=== PATIENT | female | born 1935 | race Caucasian/White ===

== ENCOUNTER 2018-06-13 07:30 | Inpatient (IN) | payer MEDICARE, BC ==
[2018-06-13] MEDS: Acetaminophen 500 MG Tab PO SCH ×2 (14:06→21:57)
[2018-06-13] MEDS ORDERED: Warfarin Sliding Scale PO SCH (14:15)
[2018-06-13] MEDS: oxyCODONE 5 MG Tab PO PRN ×2 (17:33→21:55)
--- NOTE | 2018-06-13 20:55 | PCM.HP ---
H&P History of Present Illness - General Date of Service: 06/13/18 Admit Problem/Dx: Admission Diagnosis/Problem Admission Diagnosis/Problem Hip fracture requiring operative repair Source of Information: Patient History Limitations: Reports: No Limitations - History of Present Illness Initial Comments - Free Text/Narative: 82 yo female with a recent fracture of the hip,with an intramedullary nail placed. She is being admitted to Swing Bed for rehab.has CAD,CHF,Afib,HTN,MDD all well controlled.She is a [employer]. Left Hip Pain Score (Numeric/FACES): 8 - Related Data Allergies/Adverse Reactions: Allergies Allergy/AdvReac Type Severity Reaction Status Date / Time sulfamethoxazole Allergy Other Verified 11/22/17 14:50 [From Bactrim] trimethoprim [From Bactrim] Allergy Other Verified 11/22/17 14:50 Home Medications: Home Meds Aspirin [Halfprin] 81 mg PO DAILY 11/22/17 [History] Calcium Carb/D3/Magnesium/Zinc [[place]-Afs-Ukts-Vit D] 3 tab PO DAILY 11/22/17 [History] Cholecalciferol (Vitamin D3) [Vitamin D3] 1,000 units PO DAILY 11/22/17 [History ] Desipramine HCl 100 mg PO BEDTIME 11/22/17 [History] Dextroamphetamine Sulfate [Dexedrine] 10 mg PO 08,12 11/22/17 [History] Metoprolol Succinate [Toprol Xl] 50 mg PO DAILY 11/22/17 [History] Multivitamin [Multivitamins] 1 cap PO DAILY 11/22/17 [History] Polyethylene Glycol 3350 [MiraLAX] 17 gm PO DAILY 11/22/17 [History] Sennosides/Docusate Sodium [Senna-S] 1 tab PO BID 11/22/17 [History] Warfarin [Coumadin] 4 mg PO DAILY 11/22/17 [History] Acetaminophen [Tylenol Extra Strength] 1,000 mg PO Q8H 06/13/18 [History] Enoxaparin [Lovenox] 40 mg SUBCUT DAILY 06/13/18 [History] Levothyroxine [Synthroid] 100 mcg PO 0600 06/13/18 [History] Zolpidem Tartrate [Ambien] 5 mg PO BEDTIME 06/13/18 [History] hydrOXYzine pamoate [Hydroxyzine Pamoate] 25 mg PO Q4H PRN 06/13/18 [History] oxyCODONE 2.5 mg PO Q4H PRN 06/13/18 [History] oxyCODONE 5 mg PO Q4H PRN 06/13/18 [History] Past Medical History HEENT History: Reports: Hard of Hearing, Impaired Vision, Other (See Below) Other HEENT History: cataracts removed this year, glasses only used when driving Cardiovascular History: Reports: Bypass, Hypertension, SOB on Exertion, Stents, Other (See Below) Other Cardiovascular History: TRIPLE BYPASS Respiratory History: Reports: Bronchitis, Recurrent, Pneumonia, Recurrent, SOB Gastrointestinal History: Reports: Chronic Constipation, GERD Genitourinary History: Reports: UTI, Recurrent SHELLACKER History: Reports: Other OB/BYN History: had heavy bleeding so had hysterectomy Musculoskeletal History: Reports: Arthritis, Fracture, Other (See Below) Other Musculoskeletal History: GENERAL ARTHRITIS Neurological History: Reports: CVA Other Neuro History: CVA in 2014. Psychiatric History: Reports: Depression Endocrine/Metabolic History: Reports: Hypothyroidism Hematologic History: Reports: Other (See Below) Other Hematologic History: HISORY OF BLOOD CLOTS TO LEGS\LUNGS\ ARMS AFTER OPEN HEART SURGERY - Infectious Disease History Infectious Disease History: Reports: Chicken Pox, Measles, Mumps - Past Surgical History HEENT Surgical History: Reports: Cataract Surgery, Oral Surgery Other HEENT Surgeries/Procedures: RAMU.CATARACTS Cardiovascular Surgical History: Reports: None, Coronary Artery Stent, Other ( See Below) Other Cardiovascular Surgeries/Procedures: 3 BYPASS Respiratory Surgical History: Reports: None GI Surgical History: Reports: Colonoscopy Female Surgical History: Reports: Hysterectomy Endocrine Surgical History: Reports: None Neurological Surgical History: Reports: None Musculoskeletal Surgical History: Reports: Hip Replacement, Knee Replacement, Other (See Below) Other Musculoskeletal Surgeries/Procedures:: LEFT KNEE AND RIGHT HIP LEFT LOWER LEG SURGURY WITH FOOT DROP AFTERWARDS. HAD A RECENT LEFT HIP REPLACEMENT Dermatological Surgical History: Reports: None Social & Family History - Family History Family Medical History: Noncontributory Cardiac: Reports: [place] Other Cardiac Family History: 2 brothers of heart attack, sister had heart attack too - Tobacco Use Smoking Status *Q: Former Smoker Years of Tobacco use: 10 Used Tobacco, but Quit: No Second Hand Smoke Exposure: No - Caffeine Use Caffeine Use: Reports: Coffee Caffeine Use Comment: can drink a couple of cups a day - Recreational Drug Use Recreational Drug Use: No H&P Review of Systems - Review of Systems: Review Of Systems: ROS reveals no pertinent complaints other than HPI. Exam - Exam Exam: See Below - Vital Signs Vital Signs: Last Vital Signs Temp 98.5 F 06/13/18 13:20 Pulse 78 06/13/18 13:20 Resp 18 06/13/18 13:20 BP 127/51 L 06/13/18 13:20 Pulse Ox 95 06/13/18 13:20 Weight: 74.843 kg - Exam General: Alert, Oriented, 4 HEENT: PERRLA, Hearing Intact, Mucosa Moist & [place], Nares Patent, Normal Nasal Septum, Posterior Pharynx Clear, Conjunctiva Clear, EOMI, EACs Clear, TMs Clear Neck: Supple, Trachea Midline, 2 Lungs: Clear to Auscultation, Normal Respiratory Effort Cardiovascular: Regular Rate, Regular Rhythm GI/Abdominal Exam: Normal Bowel Sounds, Soft, Non-Tender, No Organomegaly, No Distention, No Abnormal Bruit, No Mass, Pelvis Stable (Female) Exam: Deferred Rectal (Female) Exam: Normal Exam, Normal Rectal Tone Back Exam: Normal Inspection, Full Range of Motion, NT Extremities: Normal Inspection, Normal Range of Motion, Non-Tender, No Pedal Edema, Normal Capillary Refill Skin: Warm, Dry, Intact Neurological: Cranial Nerves Intact, Reflexes Equal Bilateral Neuro Extensive - Mental Status: Alert, Oriented x3, Normal Mood/Affect, Normal Cognition Neuro Extensive - Motor, Sensory, Reflexes: CN II-XII Intact, Normal Gait, Normal Reflexes Psychiatric: Alert, Normal Affect, Normal Mood - Problem List (1) Status post hip surgery SNOMED Code(s): 917657189 ICD Code: Z98.890 - OTHER SPECIFIED POSTPROCEDURAL STATES Status: Acute Current Visit: Yes (2) HTN (hypertension) SNOMED Code(s): 06866162 ICD Code: I10 - ESSENTIAL (PRIMARY) HYPERTENSION Status: Chronic Current Visit: Yes Qualifiers: Hypertension type: essential hypertension Qualified Code(s): I10 - Essential (primary) hypertension (3) CAD (coronary artery disease) SNOMED Code(s): 14794285 ICD Code: I25.10 - ATHSCL HEART DISEASE OF [place] CORONARY ARTERY W/O ANG PCTRS Status: Chronic Current Visit: Yes Qualifiers: Coronary Disease-Associated Artery/Lesion type: bypass graft (4) Afib SNOMED Code(s): 92601910 ICD Code: I48.91 - UNSPECIFIED ATRIAL FIBRILLATION Status: Chronic Current Visit: Yes Qualifiers: Atrial fibrillation type: chronic Qualified Code(s): I48.2 - Chronic atrial fibrillation (5) MDD (major depressive disorder) SNOMED Code(s): 478964937 ICD Code: F32.9 - MAJOR DEPRESSIVE DISORDER, SINGLE EPISODE, UNSPECIFIED Status: Chronic Current Visit: Yes Qualifiers: Major depression recurrence: recurrent Active/Remission status: currently active (6) Hypothyroid SNOMED Code(s): 75557725 ICD Code: E03.9 - HYPOTHYROIDISM, UNSPECIFIED Status: Chronic Current Visit: Yes Qualifiers: Hypothyroidism type: unspecified Qualified Code(s): E03.9 - Hypothyroidism , unspecified (7) Osteoporosis SNOMED Code(s): 13486018 ICD Code: M81.0 - AGE-RELATED OSTEOPOROSIS W/O CURRENT PATHOLOGICAL FRACTURE Status: Chronic Current Visit: Yes Qualifiers: Osteoporosis type: age-related (8) Long-term (current) use of anticoagulants, INR goal 2.0-3.0 SNOMED Code(s): 115570362, 203477309 ICD Code: Z79.01 - PRISON (CURRENT) USE OF ANTICOAGULANTS Status: Acute Current Visit: Yes Problem List Initiated/Reviewed/Updated: Yes Orders Last 24hrs: Active Orders 24 hr Category Date Time Status Patient Status [ADT] Routine ADT 06/13/18 13:20 Active Communication Order [RC] ASDIRECTED Care 06/13/18 13:59 Active Height and Weight [RC] .qMon@0600 Care 06/13/18 13:20 Active Oxygen Therapy [RC] PRN Care 06/13/18 13:20 Active Up With Assistance [RC] ASDIRECTED Care 06/13/18 13:20 Active VTE/DVT Education [RC] Per Unit Routine Care 06/13/18 13:20 Active Vital Signs [RC] PER UNIT ROUTINE Care 06/13/18 13:20 Active OT Evaluation and Treatment [CONS] Routine Cons 06/13/18 13:20 Active PT Evaluation and Treatment [CONS] Routine Cons 06/13/18 13:20 Active Regular Diet [DIET] Diet 06/13/18 Breakfast Active INR,PT,PROTHROMBIN TIME [COAG] Routine Lab 06/14/18 06:00 Ordered INR,PT,PROTHROMBIN TIME [COAG] Routine Lab 06/17/18 05:10 Ordered Acetaminophen [Tylenol Extra Strength] Med 06/13/18 14:00 Active 1,000 mg PO Q8H Aspirin [Halfprin] Med 06/14/18 09:00 Active 81 mg PO DAILY Calcium Carbonate/Vitamin D3 [Calcium Carbonate/Vitamin Med 06/14/18 09:00 Active D 1250 MG-200 Unit] 2 tab PO DAILY Cholecalciferol (Vitamin D3) [Vitamin D3] Med 06/14/18 09:00 Active 1,000 units PO DAILY Desipramine Med 06/13/18 21:00 Active 100 mg PO BEDTIME Docusate Sodium/Sennosides [Senna Plus] Med 06/13/18 21:00 Active 1 tab PO BID Enoxaparin [Lovenox] Med 06/14/18 09:00 Active 40 mg SUBCUT DAILY Levothyroxine [Synthroid] Med 06/14/18 06:00 Active 100 mcg PO 0600 Metoprolol Succinate [Toprol XL] Med 06/14/18 09:00 Active 50 mg PO DAILY Multivitamins w-Iron/Ca/FA/Min [Thera M Plus] Med 06/14/18 09:00 Active 1 tab PO DAILY Polyethylene Glycol 3350 [MiraLAX] Med 06/14/18 09:00 Active 17 gm PO DAILY Warfarin Sliding Scale [Coumadin Sliding Scale] Med 06/13/18 14:15 Pending 1 each PO ASDIRECTED Warfarin [Coumadin] Med 06/14/18 16:00 Active 4 mg PO 1600 Zolpidem [Ambien] Med 06/13/18 21:00 Active 5 mg PO BEDTIME hydrOXYzine HCl [Atarax] Med 06/13/18 13:37 Active 25 mg PO Q4H PRN oxyCODONE Med 06/13/18 13:21 Active 2.5 mg PO Q4H PRN oxyCODONE Med 06/13/18 13:21 Active 5 mg PO Q4H PRN Resuscitation Status Routine Resus Stat 06/13/18 13:20 Ordered Medication Orders Acetaminophen (Tylenol Extra Strength) 1,000 mg PO Q8H FRANKI Last Admin: 06/13/18 14:06 Dose: 1,000 mg Aspirin (Halfprin) 81 mg PO DAILY [facility] Calcium Carbonate (Calcium Carbonate/Vitamin D 1250 Mg-200 Unit) 2 tab PO DAILY [facility] Cholecalciferol (Vitamin D3) 1,000 units PO DAILY [facility] Desipramine HCl (Desipramine) 100 mg PO BEDTIME [facility] Enoxaparin Sodium (Lovenox) 40 mg SUBCUT DAILY [facility] Hydroxyzine HCl (Atarax) 25 mg PO Q4H PRN PRN Reason: ADJUNCT PAIN WITH OXYCODONE Levothyroxine Sodium (Synthroid) 100 mcg PO 0600 [facility] Metoprolol Succinate (Toprol Xl) 50 mg PO DAILY [facility] Multivitamins/Minerals (Thera M Plus) 1 tab PO DAILY [facility] Oxycodone HCl (Oxycodone) 2.5 mg PO Q4H PRN PRN Reason: MODERATE PAIN Last Admin: 06/13/18 17:33 Dose: 2.5 mg Oxycodone HCl (Oxycodone) 5 mg PO Q4H PRN PRN Reason: SEVERE PAIN Polyethylene Glycol (Miralax) 17 gm PO DAILY [facility] Senna/Docusate Sodium (Senna Plus) 1 tab PO BID [facility] Warfarin Sodium (Coumadin) 4 mg PO 1600 [facility] Warfarin Sodium (Coumadin Sliding Scale) 1 each PO ASDIRECTED [facility] Zolpidem Tartrate (Ambien) 5 mg PO BEDTIME [facility] Assessment/Plan Comment:: Admit to Swing Bed. Continue PT/OT and home meds
[2018-06-13] MEDS: Zolpidem 5 MG Tab PO SCH (21:55)
[2018-06-14] MEDS: hydrOXYzine HCl 25 MG Tab PO PRN ×2 (00:33→22:17)
[2018-06-14] MEDS: oxyCODONE 5 MG Tab PO PRN ×5 (00:34→20:33)
[2018-06-14] MEDS: Levothyroxine 100 MCG Tab PO SCH (06:23)
[2018-06-14] MEDS: Acetaminophen 500 MG Tab PO SCH ×3 (06:23→22:17)
[2018-06-14] MEDS: Calcium Carbonate/Vitamin D3 1250 MG-200 Unit Tab PO SCH (08:57)
[2018-06-14] MEDS: Enoxaparin 40 MG/0.4 ML Syringe SUBCUT SCH (08:57)
[2018-06-14] MEDS: Aspirin 81 MG Tab.EC PO SCH (08:57)
[2018-06-14] MEDS: Polyethylene Glycol 3350 Powder 17 GM Packet PO SCH (08:58)
[2018-06-14] MEDS: Multivitamins with Iron/Calcium/Folic Acid/Minerals Tab PO SCH (08:58)
[2018-06-14] MEDS: Cholecalciferol (Vitamin D3) 1,000 Unit Tab PO SCH (08:59)
[2018-06-14] MEDS ORDERED: Multivitamin Tab PO SCH (09:00)
[2018-06-14] MEDS: Metoprolol Succinate 50 MG Tab.ER PO SCH (09:04)
[2018-06-14] MEDS: Warfarin 4 MG Tab PO SCH (15:45)
[2018-06-14] MEDS: Zolpidem 5 MG Tab PO SCH (20:33)
[2018-06-15] MEDS: Levothyroxine 100 MCG Tab PO SCH (05:48)
[2018-06-15] MEDS: oxyCODONE 5 MG Tab PO PRN ×5 (05:48→20:23)
[2018-06-15] MEDS: Acetaminophen 500 MG Tab PO SCH ×3 (06:23→21:58)
[2018-06-15] MEDS: Calcium Carbonate/Vitamin D3 1250 MG-200 Unit Tab PO SCH (08:01)
[2018-06-15] MEDS: Cholecalciferol (Vitamin D3) 1,000 Unit Tab PO SCH (08:01)
[2018-06-15] MEDS: Aspirin 81 MG Tab.EC PO SCH (08:01)
[2018-06-15] MEDS: Polyethylene Glycol 3350 Powder 17 GM Packet PO SCH (08:02)
[2018-06-15] MEDS: Enoxaparin 40 MG/0.4 ML Syringe SUBCUT SCH (08:02)
[2018-06-15] MEDS: Metoprolol Succinate 50 MG Tab.ER PO SCH (08:03)
[2018-06-15] MEDS: Multivitamins with Iron/Calcium/Folic Acid/Minerals Tab PO SCH (08:03)
[2018-06-15] MEDS: Warfarin 4 MG Tab PO SCH (16:01)
[2018-06-15] MEDS: Zolpidem 5 MG Tab PO SCH (20:23)
[2018-06-15] MEDS: hydrOXYzine HCl 25 MG Tab PO PRN (21:58)
[2018-06-16] MEDS: Levothyroxine 100 MCG Tab PO SCH (05:55)
[2018-06-16] MEDS: Acetaminophen 500 MG Tab PO SCH (05:55)
[2018-06-16] MEDS: oxyCODONE 5 MG Tab PO PRN (07:26)
[2018-06-16] MEDS: Calcium Carbonate/Vitamin D3 1250 MG-200 Unit Tab PO SCH (09:40)
[2018-06-16] MEDS: Enoxaparin 40 MG/0.4 ML Syringe SUBCUT SCH (09:40)
[2018-06-16] MEDS: Polyethylene Glycol 3350 Powder 17 GM Packet PO SCH (09:40)
[2018-06-16] MEDS: Aspirin 81 MG Tab.EC PO SCH (09:41)
[2018-06-16] MEDS: Multivitamins with Iron/Calcium/Folic Acid/Minerals Tab PO SCH (09:42)
[2018-06-16] MEDS: Metoprolol Succinate 50 MG Tab.ER PO SCH (09:42)
[2018-06-16] MEDS: Cholecalciferol (Vitamin D3) 1,000 Unit Tab PO SCH (09:43)
--- NOTE | 2018-06-16 11:06 | PCM.PN ---
- General Info Date of Service: 06/16/18 Admission Dx/Problem (Free Text): Patient states she still having quite a bit of pain in the left hip. It's better than was a week ago but still significant. The pain pills help somewhat. There when necessary at this time. She has no fevers or chills or drainage from her wound. - Patient Data Vitals - Most Recent: Last Vital Signs Temp 97.2 F 06/16/18 06:10 Pulse 85 06/16/18 09:42 Resp 16 06/16/18 06:10 BP 175/84 H 06/16/18 09:42 Pulse Ox 96 06/16/18 06:10 Weight - Most Recent: 165 lb Med Orders - Current: Current Medications Acetaminophen (Tylenol Extra Strength) 1,000 mg PO Q8H [facility] Last Admin: 06/16/18 05:55 Dose: 1,000 mg Aspirin (Halfprin) 81 mg PO DAILY [facility] Last Admin: 06/16/18 09:41 Dose: 81 mg Calcium Carbonate (Calcium Carbonate/Vitamin D 1250 Mg-200 Unit) 2 tab PO DAILY [facility] Last Admin: 06/16/18 09:40 Dose: 2 tab Cholecalciferol (Vitamin D3) 1,000 units PO DAILY [facility] Last Admin: 06/16/18 09:43 Dose: 1,000 units Desipramine HCl (Desipramine) 100 mg PO BEDTIME [facility] Last Admin: 06/15/18 20:24 Dose: 100 mg Enoxaparin Sodium (Lovenox) 40 mg SUBCUT DAILY [facility] Last Admin: 06/16/18 09:40 Dose: 40 mg Hydroxyzine HCl (Atarax) 25 mg PO Q4H PRN PRN Reason: ADJUNCT PAIN WITH OXYCODONE Last Admin: 06/15/18 21:58 Dose: 25 mg Levothyroxine Sodium (Synthroid) 100 mcg PO 0600 [facility] Last Admin: 06/16/18 05:55 Dose: 100 mcg Metoprolol Succinate (Toprol Xl) 50 mg PO DAILY [facility] Last Admin: 06/16/18 09:42 Dose: 50 mg Multivitamins/Minerals (Thera M Plus) 1 tab PO DAILY [facility] Last Admin: 06/16/18 09:42 Dose: 1 tab Oxycodone/Acetaminophen (Percocet 325-5 Mg) 1 tab PO Q6H [facility] Polyethylene Glycol (Miralax) 17 gm PO DAILY [facility] Last Admin: 06/16/18 09:40 Dose: 17 gm Senna/Docusate Sodium (Senna Plus) 1 tab PO BID [facility] Last Admin: 06/16/18 09:41 Dose: 1 tab Warfarin Sodium (Coumadin) 4 mg PO 1600 [facility] Last Admin: 06/15/18 16:01 Dose: 4 mg Warfarin Sodium (Coumadin Sliding Scale) 1 each PO ASDIRECTED [facility] Zolpidem Tartrate (Ambien) 5 mg PO BEDTIME [facility] Last Admin: 06/15/18 20:23 Dose: 5 mg Discontinued Medications Oxycodone HCl (Oxycodone) 2.5 mg PO Q4H PRN PRN Reason: MODERATE PAIN Last Admin: 06/15/18 11:47 Dose: 2.5 mg Oxycodone HCl (Oxycodone) 5 mg PO Q4H PRN PRN Reason: SEVERE PAIN Last Admin: 06/16/18 07:26 Dose: 5 mg - Exam Lungs: Normal Respiratory Effort Skin: Other (She is sitting in a chair swing to see the upper part of her wound but not the lower part. But it's normal without erythema or drainage) - Problem List & Annotations (1) S/P total hip arthroplasty SNOMED Code(s): 395987866675, 116492397095 Code(s): Z96.649 - PRESENCE OF UNSPECIFIED ARTIFICIAL HIP JOINT Status: Acute Current Visit: No - Problem List Review Problem List Initiated/Reviewed/Updated: Yes - My Orders Last 24 Hours: My Active Orders 06/16/18 11:15 Acetaminophen/oxyCODONE [Percocet 325-5 MG] 1 tab PO Q6H - Plan Plan:: Oxycodone when necessary. Start Percocet 5 x 3 25 mg 1 every 6 hours scheduled.
[2018-06-16] MEDS: Acetaminophen/oxyCODONE 325-5 MG Tab PO SCH ×2 (11:52→17:28)
[2018-06-16] MEDS: Warfarin 4 MG Tab PO SCH (16:28)
[2018-06-16] MEDS: Zolpidem 5 MG Tab PO SCH (20:48)
[2018-06-17] MEDS: Acetaminophen/oxyCODONE 325-5 MG Tab PO SCH ×5 (00:24→20:44)
[2018-06-17] MEDS: hydrOXYzine HCl 25 MG Tab PO PRN ×3 (00:24→15:31)
[2018-06-17] MEDS: Levothyroxine 100 MCG Tab PO SCH (05:27)
[2018-06-17] MEDS: Calcium Carbonate/Vitamin D3 1250 MG-200 Unit Tab PO SCH (08:58)
[2018-06-17] MEDS: Polyethylene Glycol 3350 Powder 17 GM Packet PO SCH (08:59)
[2018-06-17] MEDS: Metoprolol Succinate 50 MG Tab.ER PO SCH (08:59)
[2018-06-17] MEDS: Aspirin 81 MG Tab.EC PO SCH (08:59)
[2018-06-17] MEDS: Multivitamins with Iron/Calcium/Folic Acid/Minerals Tab PO SCH (08:59)
[2018-06-17] MEDS: Enoxaparin 40 MG/0.4 ML Syringe SUBCUT SCH (08:59)
[2018-06-17] MEDS: Cholecalciferol (Vitamin D3) 1,000 Unit Tab PO SCH (09:01)
[2018-06-17] MEDS ORDERED: Warfarin 3 MG Tab PO ONE (16:00)
[2018-06-17] MEDS: Zolpidem 5 MG Tab PO SCH (22:42)
[2018-06-18] MEDS: hydrOXYzine HCl 25 MG Tab PO PRN (00:43)
[2018-06-18] MEDS: Acetaminophen/oxyCODONE 325-5 MG Tab PO SCH ×6 (00:43→20:07)
[2018-06-18] MEDS: Levothyroxine 100 MCG Tab PO SCH (05:59)
[2018-06-18] MEDS: Calcium Carbonate/Vitamin D3 1250 MG-200 Unit Tab PO SCH (09:33)
[2018-06-18] MEDS: Polyethylene Glycol 3350 Powder 17 GM Packet PO SCH (09:33)
[2018-06-18] MEDS: Aspirin 81 MG Tab.EC PO SCH (09:33)
[2018-06-18] MEDS: Enoxaparin 40 MG/0.4 ML Syringe SUBCUT SCH (09:33)
[2018-06-18] MEDS: Metoprolol Succinate 50 MG Tab.ER PO SCH (09:34)
[2018-06-18] MEDS: Cholecalciferol (Vitamin D3) 1,000 Unit Tab PO SCH (09:34)
[2018-06-18] MEDS: Multivitamins with Iron/Calcium/Folic Acid/Minerals Tab PO SCH (09:34)
[2018-06-18] MEDS ORDERED: Warfarin 3 MG Tab PO ONE (16:00)
[2018-06-18] MEDS: Zolpidem 5 MG Tab PO SCH (20:08)
[2018-06-19] MEDS: Acetaminophen/oxyCODONE 325-5 MG Tab PO SCH ×7 (00:15→23:50)
[2018-06-19] MEDS: Levothyroxine 100 MCG Tab PO SCH (05:13)
[2018-06-19] MEDS: Calcium Carbonate/Vitamin D3 1250 MG-200 Unit Tab PO SCH (09:07)
[2018-06-19] MEDS: Polyethylene Glycol 3350 Powder 17 GM Packet PO SCH (09:08)
[2018-06-19] MEDS: Aspirin 81 MG Tab.EC PO SCH (09:08)
[2018-06-19] MEDS: Enoxaparin 40 MG/0.4 ML Syringe SUBCUT SCH (09:08)
[2018-06-19] MEDS: Multivitamins with Iron/Calcium/Folic Acid/Minerals Tab PO SCH (09:08)
[2018-06-19] MEDS: Metoprolol Succinate 50 MG Tab.ER PO SCH (09:09)
[2018-06-19] MEDS: Cholecalciferol (Vitamin D3) 1,000 Unit Tab PO SCH (09:09)
[2018-06-19] MEDS: Warfarin 4 MG Tab PO SCH (15:27)
[2018-06-19] MEDS: Zolpidem 5 MG Tab PO SCH (20:33)
[2018-06-20] MEDS: Acetaminophen/oxyCODONE 325-5 MG Tab PO SCH ×5 (04:54→20:30)
[2018-06-20] MEDS: Levothyroxine 100 MCG Tab PO SCH (04:59)
[2018-06-20] MEDS: Polyethylene Glycol 3350 Powder 17 GM Packet PO SCH (09:28)
[2018-06-20] MEDS: Enoxaparin 40 MG/0.4 ML Syringe SUBCUT SCH (09:28)
[2018-06-20] MEDS: Aspirin 81 MG Tab.EC PO SCH (09:29)
[2018-06-20] MEDS: Calcium Carbonate 500 MG Tablet PO SCH (09:29)
[2018-06-20] MEDS: Multivitamins with Iron/Calcium/Folic Acid/Minerals Tab PO SCH (09:29)
[2018-06-20] MEDS: Metoprolol Succinate 50 MG Tab.ER PO SCH (09:30)
[2018-06-20] MEDS: Cholecalciferol (Vitamin D3) 1,000 Unit Tab PO SCH (09:30)
[2018-06-20] MEDS: Warfarin 4 MG Tab PO SCH (16:07)
[2018-06-20] MEDS: Zolpidem 5 MG Tab PO SCH (20:32)
[2018-06-21] MEDS: Acetaminophen/oxyCODONE 325-5 MG Tab PO SCH ×3 (00:18→08:15)
[2018-06-21] MEDS: hydrOXYzine HCl 25 MG Tab PO PRN ×2 (00:19→20:34)
[2018-06-21] MEDS: Levothyroxine 100 MCG Tab PO SCH (06:07)
[2018-06-21] MEDS: Aspirin 81 MG Tab.EC PO SCH (08:52)
[2018-06-21] MEDS: Calcium Carbonate 500 MG Tablet PO SCH (08:52)
[2018-06-21] MEDS: Polyethylene Glycol 3350 Powder 17 GM Packet PO SCH (08:53)
[2018-06-21] MEDS: Metoprolol Succinate 50 MG Tab.ER PO SCH (08:54)
[2018-06-21] MEDS: Multivitamins with Iron/Calcium/Folic Acid/Minerals Tab PO SCH (08:54)
[2018-06-21] MEDS: Cholecalciferol (Vitamin D3) 1,000 Unit Tab PO SCH (08:55)
[2018-06-21] MEDS: Enoxaparin 40 MG/0.4 ML Syringe SUBCUT SCH (08:55)
[2018-06-21] MEDS: fentaNYL 12 MCG/HR Transdermal Patch TRDERM SCH (09:26)
[2018-06-21] MEDS: Acetaminophen/oxyCODONE 325-5 MG Tab PO PRN ×3 (12:35→20:33)
[2018-06-21] MEDS: Warfarin 3 MG Tab PO SCH (16:22)
[2018-06-21] MEDS: Zolpidem 5 MG Tab PO SCH (20:33)
[2018-06-21] MEDS: Gabapentin 100 MG Cap PO SCH (20:34)
[2018-06-22] MEDS: Levothyroxine 100 MCG Tab PO SCH (06:15)
[2018-06-22] MEDS: hydrOXYzine HCl 25 MG Tab PO PRN ×2 (06:20→20:04)
[2018-06-22] MEDS: Acetaminophen/oxyCODONE 325-5 MG Tab PO PRN ×4 (06:21→20:04)
[2018-06-22] MEDS: Calcium Carbonate 500 MG Tablet PO SCH (08:20)
[2018-06-22] MEDS: Aspirin 81 MG Tab.EC PO SCH (08:20)
[2018-06-22] MEDS: Cholecalciferol (Vitamin D3) 1,000 Unit Tab PO SCH (08:21)
[2018-06-22] MEDS: Multivitamins with Iron/Calcium/Folic Acid/Minerals Tab PO SCH (08:21)
[2018-06-22] MEDS: Polyethylene Glycol 3350 Powder 17 GM Packet PO SCH (08:21)
[2018-06-22] MEDS: Enoxaparin 40 MG/0.4 ML Syringe SUBCUT SCH (08:21)
[2018-06-22] MEDS: Metoprolol Succinate 50 MG Tab.ER PO SCH (08:22)
[2018-06-22] MEDS: Ferrous Sulfate 325 MG Tab PO SCH ×2 (12:26→17:54)
[2018-06-22] MEDS: Warfarin 3 MG Tab PO SCH (15:57)
[2018-06-22] MEDS: Zolpidem 5 MG Tab PO SCH (20:04)
[2018-06-22] MEDS: Gabapentin 100 MG Cap PO SCH (20:04)
[2018-06-23] MEDS: Levothyroxine 100 MCG Tab PO SCH (06:06)
[2018-06-23] MEDS: Acetaminophen/oxyCODONE 325-5 MG Tab PO PRN ×3 (07:41→19:48)
[2018-06-23] MEDS: Ferrous Sulfate 325 MG Tab PO SCH ×2 (07:45→17:34)
[2018-06-23] MEDS: hydrOXYzine HCl 25 MG Tab PO PRN ×2 (07:45→19:48)
[2018-06-23] MEDS: Calcium Carbonate 500 MG Tablet PO SCH (10:05)
[2018-06-23] MEDS: Polyethylene Glycol 3350 Powder 17 GM Packet PO SCH (10:05)
[2018-06-23] MEDS: Multivitamins with Iron/Calcium/Folic Acid/Minerals Tab PO SCH (10:06)
[2018-06-23] MEDS: Cholecalciferol (Vitamin D3) 1,000 Unit Tab PO SCH (10:06)
[2018-06-23] MEDS: Metoprolol Succinate 50 MG Tab.ER PO SCH (10:06)
[2018-06-23] MEDS ORDERED: Warfarin 4 MG Tab PO ONE (16:00)
[2018-06-23] MEDS: Zolpidem 5 MG Tab PO SCH (20:11)
[2018-06-23] MEDS: Gabapentin 100 MG Cap PO SCH (20:11)
[2018-06-24] MEDS: Acetaminophen/oxyCODONE 325-5 MG Tab PO PRN ×5 (00:06→22:06)
[2018-06-24] MEDS: hydrOXYzine HCl 25 MG Tab PO PRN ×2 (00:06→06:22)
[2018-06-24] MEDS: Levothyroxine 100 MCG Tab PO SCH (06:23)
[2018-06-24] MEDS: Polyethylene Glycol 3350 Powder 17 GM Packet PO SCH (08:02)
[2018-06-24] MEDS: Calcium Carbonate 500 MG Tablet PO SCH (08:02)
[2018-06-24] MEDS: Multivitamins with Iron/Calcium/Folic Acid/Minerals Tab PO SCH (08:03)
[2018-06-24] MEDS: Cholecalciferol (Vitamin D3) 1,000 Unit Tab PO SCH (08:03)
[2018-06-24] MEDS: Metoprolol Succinate 50 MG Tab.ER PO SCH (08:03)
[2018-06-24] MEDS: Ferrous Sulfate 325 MG Tab PO SCH ×2 (08:14→18:12)
[2018-06-24] MEDS: fentaNYL 12 MCG/HR Transdermal Patch TRDERM SCH (08:16)
--- NOTE | 2018-06-24 11:25 | PN ---
DATE SEEN: 06/21/2018 HISTORY: Lashell is an 82-year-old woman from [place], [place], with a history of hip fracture and ORIF with left intramedullary nail on approximately June 10, 2018. She was discharged from [place] to [facility] for swing bed. She had previously had a right hip fracture with hemiprosthesis and had been recuperating satisfactorily from that when she fell this last time. Since surgery, she has had a significant amount of pain. She says this one hurts quite a bit worse than the previous right-sided fracture and surgery. She is not getting good pain relief with current medications, and she says, particularly after her therapy, last evening, she states, she was in almost unbearable pain on the left. She is normally a very physically active person, but she does describe herself as being clumsy because of a lack of Achilles tendon on one side which may have contributed to her last fall. PHYSICAL EXAMINATION: GENERAL: The patient is examined in her chair during breakfast. VITAL SIGNS: Blood pressure 138/73, pulse 64, respirations normal, O2 saturation 96% on room air, and temperature 98.1. SKIN: Warm and dry. She has a bandage over the left hip incision. This was removed, revealing 3 interrupted rows of joey that are clean and healing. HEENT: Shows her mouth to be dry. LUNGS: Clear to the left base. She has rales at the right lower one-third, they are quite coarse. HEART: Regular without murmur, rub, or gallop. No atrial fibrillation is noted today on exam. ABDOMEN: Normal bowel sounds. Soft and nontender. EXTREMITIES: Show 1+ edema at both ankles, but left slightly greater than right. Right hip is comfortable, mild internal and external rotation. Left hip is markedly painful on flexion at the hip joint and any internal and external rotation. ASSESSMENT: 1. Postop left hip fracture ORIF, now by approximately 2 weeks, significant pain yet that is not controlled on current medications. 2. History of atrial fibrillation, on chronic warfarin anticoagulation. 3. Osteoporotic fracture of right hip, with hemiprosthesis, healing satisfactorily. 4. Achilles dysfunction by history. 5. History of chronic peripheral neuropathy and complaint of distressing cold feet preventing sleep at night. 6. Hypothyroidism. 7. Chronic essential hypertension. PLAN: Warfarin is being adjusted to become therapeutic, and then we will stop the Lovenox. I will add a Duragesic patch for better pain control and gabapentin starting with low-dose 100 mg at bedtime because of her concomitant narcotic use. Anticipate another couple of weeks of rehab on the hip. Anticipate discharge to home following recuperation. /[id number] [id number] SHELLY/ISAAC
--- NOTE | 2018-06-24 11:28 | PN ---
DATE SEEN: 06/23/2018 HISTORY: Lashell is an 82-year-old woman from [place] with a history of atrial fibrillation, history of cerebrovascular accident, coronary artery disease, hypertension, hypothyroidism, and depression. She fell at home and sustained a left proximal femur fracture. She underwent open reduction and internal fixation by Dr. Lala at [facility] in [place] on 06/09/2018. Postop hemoglobin was 8.5 g. She was given vitamin K preop and her warfarin has been resumed postop now. She has had moderate pain with ambulation. She was started on a Duragesic patch 2 days ago and has noted improvement in her ability to tolerate therapy, her general comfort in the hip. She is walking in the halls with therapy and making slow but steady progress. Of note is her hemoglobin dropped slightly further from 9 g last week to 8.4 g yesterday with an MCV of 73. Iron levels have been drawn and she is started on oral iron. Her INR last was 1.72. She is due for INR again tomorrow. Lashell states that she slept better last night and thinks that her feet have felt warmer since starting on gabapentin at bedtime. PHYSICAL EXAMINATION: GENERAL: She is examined in her bed. She is alert and oriented. She is a good historian. VITAL SIGNS: Blood pressure 135/71, pulse 68 and regular, respirations normal, O2 saturation 94% on room air, temperature 98.2. Last weight done on 06/16 was 165 pounds. SKIN: Anicteric, warm, dry. She has 3 separate short incisions overlying her left hip that are healing nicely with joey in place. No erythema, drainage, etc. LUNGS: Clear on the left. She has rales at lower 1/3rd on the right. HEART: Regular without murmur or gallop heard. ABDOMEN: Soft and nontender. EXTREMITIES: Show no significant edema at the ankles and comfortable internal and external rotation to a few degrees left hip. ASSESSMENT: 1. Healing making progress now 14 days post open reduction and internal fixation of left hip. 2. Chronic atrial fibrillation, on warfarin. 3. History of coronary artery disease and myocardial infarction. 4. History of stroke. 5. Hypertension. 6. Hypothyroidism. 7. Symptomatic peripheral neuropathy feet; improved, on bedtime gabapentin. 8. Depression. /[id number] RO/MODL PLAN: We will continue therapy. She is due for orthopedic clinic recheck in four days for staple removal. She is not sure she wants to make the trip up to [place] for this and we may just remove her joey here if she continues to make good therapy and progress and she would plan on her orthopedic followup later in July. We will continue the current analgesia and continue to provide palliative care measures for her generalized osteoarthritis, weakness, depression, etc. /[id number] RO/MODL
[2018-06-24] MEDS ORDERED: Warfarin 3 MG Tab PO ONE (16:00)
[2018-06-24] MEDS ORDERED: Warfarin 4 MG Tab PO ONE (16:00)
[2018-06-24] MEDS: Gabapentin 100 MG Cap PO SCH (22:01)
[2018-06-24] MEDS: Zolpidem 5 MG Tab PO SCH (22:01)
[2018-06-25] MEDS: Acetaminophen/oxyCODONE 325-5 MG Tab PO PRN ×4 (07:00→21:13)
[2018-06-25] MEDS: Levothyroxine 100 MCG Tab PO SCH (07:00)
[2018-06-25] MEDS: Multivitamins with Iron/Calcium/Folic Acid/Minerals Tab PO SCH (08:07)
[2018-06-25] MEDS: Ferrous Sulfate 325 MG Tab PO SCH ×2 (08:07→17:32)
[2018-06-25] MEDS: Cholecalciferol (Vitamin D3) 1,000 Unit Tab PO SCH (08:07)
[2018-06-25] MEDS: Calcium Carbonate 500 MG Tablet PO SCH (08:08)
[2018-06-25] MEDS: Metoprolol Succinate 50 MG Tab.ER PO SCH (08:08)
[2018-06-25] MEDS: Polyethylene Glycol 3350 Powder 17 GM Packet PO SCH (08:08)
[2018-06-25] MEDS ORDERED: Warfarin 3 MG Tab PO ONE (16:00)
[2018-06-25] MEDS: Gabapentin 100 MG Cap PO SCH (21:12)
[2018-06-25] MEDS: Zolpidem 5 MG Tab PO SCH (21:13)
[2018-06-26] MEDS: Levothyroxine 100 MCG Tab PO SCH (05:58)
[2018-06-26] MEDS: Acetaminophen/oxyCODONE 325-5 MG Tab PO PRN (05:59)
[2018-06-26] MEDS: Polyethylene Glycol 3350 Powder 17 GM Packet PO SCH (08:23)
[2018-06-26] MEDS: Ferrous Sulfate 325 MG Tab PO SCH ×2 (08:23→17:43)
[2018-06-26] MEDS: Furosemide 40 MG Tab PO SCH (08:23)
[2018-06-26] MEDS: Calcium Carbonate 500 MG Tablet PO SCH (08:23)
[2018-06-26] MEDS: Multivitamins with Iron/Calcium/Folic Acid/Minerals Tab PO SCH (08:24)
[2018-06-26] MEDS: Cholecalciferol (Vitamin D3) 1,000 Unit Tab PO SCH (08:24)
[2018-06-26] MEDS: Metoprolol Succinate 50 MG Tab.ER PO SCH (08:26)
--- NOTE | 2018-06-26 10:47 | PN ---
DATE SEEN: 06/26/2018 HISTORY OF PRESENT ILLNESS: Ms. Ennis is an 82-year-old woman with a history of atrial fibrillation, CVA, coronary artery disease, hypertension, hypothyroidism, depression. She sustained a left femur fracture and underwent ORIF on 06/09/2018. She has been in [facility] swing bed for rehab since 06/13/2018. She is improving from an orthopedic standpoint. She is walking out in the hallway several feet in each direction with her walker. She does get some left hip and knee pain at the end of that, but is not significantly dyspneic and gets no chest pain. Of note is her weight has increased from 165 pounds on admission to 180 pounds, 14 ounces yesterday. PHYSICAL EXAMINATION: VITAL SIGNS: Blood pressure 158/68, pulse 64 and irregular in atrial fib, O2 saturation 96% on room air, temp 98.3. SKIN: Shows no rash. There are healing incisions with joey overlying the left hip though joey will be removed tomorrow, which she has had no drainage, erythema, inflammation, etc. MOUTH: Dry. LUNGS: Have slight rales at the bases. HEART: Irregular in atrial fib, rate controlled. ABDOMEN: Soft and nontender. EXTREMITIES: Show 1+ edema at the malleoli bilaterally. LABORATORY DATA: Hemoglobin 8.3, INR 2.22. Last creatinine 0.7. ASSESSMENT: 1. Weight gain consistent with congestive heart failure. 2. Healing postop open reduction and internal fixation, left hip. 3. Chronic atrial fibrillation on anticoagulation. 4. Coronary artery disease. 5. Anemia with continued drop in hemoglobin. 6. Hypothyroidism. 7. Hypertension. 8. Chronic peripheral neuropathy. PLAN: We will diurese her with Lasix and follow up labs in the a.m. Continue therapy with plans to return to home once adequately recuperated. /[id number] Yoli BRAVO/ISAAC
[2018-06-26] MEDS: Acetaminophen/Codeine 300-30 MG Tab PO PRN ×2 (13:39→21:42)
[2018-06-26] MEDS ORDERED: Warfarin 4 MG Tab PO ONE (16:00)
[2018-06-26] MEDS: Zolpidem 5 MG Tab PO SCH (21:18)
[2018-06-26] MEDS: Gabapentin 100 MG Cap PO SCH (21:42)
[2018-06-27] MEDS: Levothyroxine 100 MCG Tab PO SCH (06:32)
[2018-06-27] MEDS: Acetaminophen/Codeine 300-30 MG Tab PO PRN ×2 (08:08→15:15)
[2018-06-27] MEDS: Ferrous Sulfate 325 MG Tab PO SCH ×2 (08:17→17:08)
[2018-06-27] MEDS: Polyethylene Glycol 3350 Powder 17 GM Packet PO SCH (08:18)
[2018-06-27] MEDS: Calcium Carbonate 500 MG Tablet PO SCH (08:18)
[2018-06-27] MEDS: Furosemide 40 MG Tab PO SCH (08:18)
[2018-06-27] MEDS: Metoprolol Succinate 50 MG Tab.ER PO SCH (08:18)
[2018-06-27] MEDS: Multivitamins with Iron/Calcium/Folic Acid/Minerals Tab PO SCH (08:19)
[2018-06-27] MEDS: Cholecalciferol (Vitamin D3) 1,000 Unit Tab PO SCH (08:19)
[2018-06-27] MEDS: fentaNYL 12 MCG/HR Transdermal Patch TRDERM SCH (08:23)
[2018-06-27] MEDS: Warfarin 3 MG Tab PO SCH (17:07)
[2018-06-27] MEDS: Gabapentin 100 MG Cap PO SCH (20:32)
[2018-06-27] MEDS: Zolpidem 5 MG Tab PO SCH (22:11)
[2018-06-28] MEDS: Acetaminophen/Codeine 300-30 MG Tab PO PRN ×3 (02:05→18:26)
[2018-06-28] MEDS: Levothyroxine 100 MCG Tab PO SCH (07:02)
[2018-06-28] MEDS: Polyethylene Glycol 3350 Powder 17 GM Packet PO SCH (09:27)
[2018-06-28] MEDS: Calcium Carbonate 500 MG Tablet PO SCH (09:27)
[2018-06-28] MEDS: Furosemide 40 MG Tab PO SCH (09:27)
[2018-06-28] MEDS: Ferrous Sulfate 325 MG Tab PO SCH ×2 (09:27→18:26)
[2018-06-28] MEDS: Cholecalciferol (Vitamin D3) 1,000 Unit Tab PO SCH (09:28)
[2018-06-28] MEDS: Metoprolol Succinate 50 MG Tab.ER PO SCH (09:28)
[2018-06-28] MEDS: Multivitamins with Iron/Calcium/Folic Acid/Minerals Tab PO SCH (09:28)
[2018-06-28] MEDS: Warfarin 4 MG Tab PO SCH (18:26)
[2018-06-28] MEDS: Zolpidem 5 MG Tab PO SCH (20:07)
[2018-06-28] MEDS: Gabapentin 100 MG Cap PO SCH (20:08)
[2018-06-29] MEDS: Acetaminophen/Codeine 300-30 MG Tab PO PRN ×2 (05:02→21:10)
[2018-06-29] MEDS: Levothyroxine 100 MCG Tab PO SCH (05:02)
[2018-06-29] MEDS: Ferrous Sulfate 325 MG Tab PO SCH ×2 (08:22→17:52)
[2018-06-29] MEDS: Furosemide 40 MG Tab PO SCH (08:23)
[2018-06-29] MEDS: Metoprolol Succinate 50 MG Tab.ER PO SCH (08:23)
[2018-06-29] MEDS: Polyethylene Glycol 3350 Powder 17 GM Packet PO SCH (08:23)
[2018-06-29] MEDS: Multivitamins with Iron/Calcium/Folic Acid/Minerals Tab PO SCH (08:23)
[2018-06-29] MEDS: Calcium Carbonate 500 MG Tablet PO SCH (08:23)
[2018-06-29] MEDS: Cholecalciferol (Vitamin D3) 1,000 Unit Tab PO SCH (08:24)
[2018-06-29] MEDS: Warfarin 3 MG Tab PO SCH (17:52)
[2018-06-29] MEDS: Zolpidem 5 MG Tab PO SCH (20:17)
[2018-06-29] MEDS: Gabapentin 100 MG Cap PO SCH (20:54)
[2018-06-30] MEDS: Levothyroxine 100 MCG Tab PO SCH (06:05)
[2018-06-30] MEDS: Acetaminophen/Codeine 300-30 MG Tab PO PRN ×2 (06:09→12:43)
[2018-06-30] MEDS: Calcium Carbonate 500 MG Tablet PO SCH (09:08)
[2018-06-30] MEDS: Polyethylene Glycol 3350 Powder 17 GM Packet PO SCH (09:08)
[2018-06-30] MEDS: Cholecalciferol (Vitamin D3) 1,000 Unit Tab PO SCH (09:09)
[2018-06-30] MEDS: Metoprolol Succinate 50 MG Tab.ER PO SCH (09:09)
[2018-06-30] MEDS: Furosemide 40 MG Tab PO SCH (09:09)
[2018-06-30] MEDS: Multivitamins with Iron/Calcium/Folic Acid/Minerals Tab PO SCH (09:10)
[2018-06-30] MEDS: Ferrous Sulfate 325 MG Tab PO SCH ×2 (09:11→18:08)
[2018-06-30] MEDS: fentaNYL 12 MCG/HR Transdermal Patch TRDERM SCH (09:38)
[2018-06-30] MEDS: hydrOXYzine HCl 25 MG Tab PO PRN (12:44)
[2018-06-30] MEDS: Warfarin 3 MG Tab PO SCH (18:08)
[2018-06-30] MEDS: Zolpidem 5 MG Tab PO SCH (20:27)
[2018-06-30] MEDS: Gabapentin 100 MG Cap PO SCH (20:28)
[2018-07-01] MEDS: Acetaminophen/Codeine 300-30 MG Tab PO PRN ×3 (01:56→17:49)
[2018-07-01] MEDS: Levothyroxine 100 MCG Tab PO SCH (05:47)
[2018-07-01] MEDS: Furosemide 40 MG Tab PO SCH (09:04)
[2018-07-01] MEDS: Cholecalciferol (Vitamin D3) 1,000 Unit Tab PO SCH (09:04)
[2018-07-01] MEDS: Polyethylene Glycol 3350 Powder 17 GM Packet PO SCH (09:05)
[2018-07-01] MEDS: Calcium Carbonate 500 MG Tablet PO SCH (09:05)
[2018-07-01] MEDS: Ferrous Sulfate 325 MG Tab PO SCH ×2 (09:05→17:49)
[2018-07-01] MEDS: Multivitamins with Iron/Calcium/Folic Acid/Minerals Tab PO SCH (09:06)
[2018-07-01] MEDS: Metoprolol Succinate 50 MG Tab.ER PO SCH (09:06)
[2018-07-01] MEDS: Warfarin 4 MG Tab PO SCH (17:46)
[2018-07-01] MEDS: Zolpidem 5 MG Tab PO SCH (20:41)
[2018-07-01] MEDS: Gabapentin 100 MG Cap PO SCH (20:41)
[2018-07-02] MEDS: Levothyroxine 100 MCG Tab PO SCH (07:14)
[2018-07-02] MEDS: Acetaminophen/Codeine 300-30 MG Tab PO PRN ×3 (08:43→21:42)
[2018-07-02] MEDS: Furosemide 40 MG Tab PO SCH (09:35)
[2018-07-02] MEDS: Ferrous Sulfate 325 MG Tab PO SCH ×2 (09:35→18:38)
[2018-07-02] MEDS: Polyethylene Glycol 3350 Powder 17 GM Packet PO SCH (09:36)
[2018-07-02] MEDS: Multivitamins with Iron/Calcium/Folic Acid/Minerals Tab PO SCH (09:37)
[2018-07-02] MEDS: Calcium Carbonate 500 MG Tablet PO SCH (09:37)
[2018-07-02] MEDS: Cholecalciferol (Vitamin D3) 1,000 Unit Tab PO SCH (09:38)
[2018-07-02] MEDS: Metoprolol Succinate 50 MG Tab.ER PO SCH (09:43)
[2018-07-02] MEDS: fentaNYL 25 MCG/HR Transdermal Patch TRDERM SCH (10:28)
--- NOTE | 2018-07-02 10:50 | PN ---
DATE SEEN: 07/02/2018 SUBJECTIVE: Lashell Ennis is an 82-year-old, female, admitted on 06/13/2018. Sustained a fall with resultant left hip fracture. It was surgically repaired in [place]. Has been in swing bed since 06/13/2018. LABORATORY STUDIES: Hemoglobin on 06/26/2018, 8.3, INR is stable at 2.54 on 07/01/2018. MEDICATIONS: Reviewed. PHYSICAL EXAMINATION: VITAL SIGNS: 145/65, 68, 37.0, 93% on room air, 18 is the respirations. GENERAL: Appears comfortable. NECK: Benign. Thyroid small. CHEST: Clear in all lung angulo. HEART: Occasional ectopy. Soft murmur. SKIN: Wound healing without conflict. ASSESSMENT: 1. Left hip fracture. 2. Anemia. PLAN: We will recheck her hemoglobin, therapy is going well, patch not controlling her pain, we will increase to 25 at bedtime. Complementary care and well being. /[id number] /ISAAC
[2018-07-02] MEDS: Warfarin 3 MG Tab PO SCH (16:28)
[2018-07-02] MEDS: Zolpidem 5 MG Tab PO SCH (21:32)
[2018-07-02] MEDS: Gabapentin 100 MG Cap PO SCH (21:32)
[2018-07-03] MEDS: Levothyroxine 100 MCG Tab PO SCH (06:52)
[2018-07-03] MEDS: Acetaminophen/Codeine 300-30 MG Tab PO PRN ×2 (08:18→16:27)
[2018-07-03] MEDS: Polyethylene Glycol 3350 Powder 17 GM Packet PO SCH (08:52)
[2018-07-03] MEDS: Multivitamins with Iron/Calcium/Folic Acid/Minerals Tab PO SCH (08:53)
[2018-07-03] MEDS: Calcium Carbonate 500 MG Tablet PO SCH (08:53)
[2018-07-03] MEDS: Ferrous Sulfate 325 MG Tab PO SCH ×2 (08:53→18:09)
[2018-07-03] MEDS: Furosemide 40 MG Tab PO SCH (08:53)
[2018-07-03] MEDS: Cholecalciferol (Vitamin D3) 1,000 Unit Tab PO SCH (08:54)
[2018-07-03] MEDS: Metoprolol Succinate 50 MG Tab.ER PO SCH (09:37)
[2018-07-03] MEDS: Warfarin 4 MG Tab PO SCH (16:19)
[2018-07-03] MEDS: Zolpidem 5 MG Tab PO SCH (20:27)
[2018-07-03] MEDS: Gabapentin 100 MG Cap PO SCH (20:28)
[2018-07-04] MEDS: Levothyroxine 100 MCG Tab PO SCH (06:32)
[2018-07-04] MEDS: Acetaminophen/Codeine 300-30 MG Tab PO PRN ×2 (06:54→21:35)
[2018-07-04] MEDS: Furosemide 40 MG Tab PO SCH (09:13)
[2018-07-04] MEDS: Ferrous Sulfate 325 MG Tab PO SCH ×2 (09:13→17:07)
[2018-07-04] MEDS: Metoprolol Succinate 50 MG Tab.ER PO SCH (09:14)
[2018-07-04] MEDS: Cholecalciferol (Vitamin D3) 1,000 Unit Tab PO SCH (09:14)
[2018-07-04] MEDS: Multivitamins with Iron/Calcium/Folic Acid/Minerals Tab PO SCH (09:14)
[2018-07-04] MEDS: Calcium Carbonate 500 MG Tablet PO SCH (09:14)
[2018-07-04] MEDS: Polyethylene Glycol 3350 Powder 17 GM Packet PO SCH (09:15)
[2018-07-04] MEDS: Warfarin 3 MG Tab PO SCH (16:49)
[2018-07-04] MEDS: Gabapentin 100 MG Cap PO SCH (21:35)
[2018-07-04] MEDS: Zolpidem 5 MG Tab PO SCH (21:35)
[2018-07-05] MEDS: Levothyroxine 100 MCG Tab PO SCH (06:18)
[2018-07-05] MEDS: Ferrous Sulfate 325 MG Tab PO SCH ×2 (08:30→18:06)
[2018-07-05] MEDS: Multivitamins with Iron/Calcium/Folic Acid/Minerals Tab PO SCH (08:31)
[2018-07-05] MEDS: Cholecalciferol (Vitamin D3) 1,000 Unit Tab PO SCH (08:31)
[2018-07-05] MEDS: Furosemide 40 MG Tab PO SCH (08:31)
[2018-07-05] MEDS: Metoprolol Succinate 50 MG Tab.ER PO SCH (08:31)
[2018-07-05] MEDS: Calcium Carbonate 500 MG Tablet PO SCH (08:31)
[2018-07-05] MEDS: fentaNYL 25 MCG/HR Transdermal Patch TRDERM SCH (09:34)
[2018-07-05] MEDS: Polyethylene Glycol 3350 Powder 17 GM Packet PO SCH (09:36)
[2018-07-05] MEDS: Acetaminophen/Codeine 300-30 MG Tab PO PRN (15:59)
[2018-07-05] MEDS: Warfarin 4 MG Tab PO SCH (16:00)
[2018-07-05] MEDS: Zolpidem 5 MG Tab PO SCH (20:12)
[2018-07-05] MEDS: Gabapentin 100 MG Cap PO SCH (20:12)
[2018-07-06] MEDS: Levothyroxine 100 MCG Tab PO SCH (06:18)
[2018-07-06] MEDS: Calcium Carbonate 500 MG Tablet PO SCH (08:43)
[2018-07-06] MEDS: Furosemide 40 MG Tab PO SCH (08:44)
[2018-07-06] MEDS: Polyethylene Glycol 3350 Powder 17 GM Packet PO SCH (08:44)
[2018-07-06] MEDS: Multivitamins with Iron/Calcium/Folic Acid/Minerals Tab PO SCH (08:44)
[2018-07-06] MEDS: Metoprolol Succinate 50 MG Tab.ER PO SCH (08:44)
[2018-07-06] MEDS: Cholecalciferol (Vitamin D3) 1,000 Unit Tab PO SCH (08:44)
[2018-07-06] MEDS: Ferrous Sulfate 325 MG Tab PO SCH ×2 (08:44→18:01)
[2018-07-06] MEDS: Acetaminophen/Codeine 300-30 MG Tab PO PRN ×2 (08:50→20:04)
[2018-07-06] MEDS: Warfarin 3 MG Tab PO SCH (16:56)
[2018-07-06] MEDS: Gabapentin 100 MG Cap PO SCH (20:04)
[2018-07-06] MEDS: Zolpidem 5 MG Tab PO SCH (20:04)
[2018-07-07] MEDS: Levothyroxine 100 MCG Tab PO SCH (06:20)
[2018-07-07] MEDS: Acetaminophen/Codeine 300-30 MG Tab PO PRN ×2 (08:51→20:11)
[2018-07-07] MEDS: Calcium Carbonate 500 MG Tablet PO SCH (08:53)
[2018-07-07] MEDS: Multivitamins with Iron/Calcium/Folic Acid/Minerals Tab PO SCH (08:53)
[2018-07-07] MEDS: Furosemide 40 MG Tab PO SCH (08:53)
[2018-07-07] MEDS: Polyethylene Glycol 3350 Powder 17 GM Packet PO SCH (08:53)
[2018-07-07] MEDS: Ferrous Sulfate 325 MG Tab PO SCH ×2 (08:53→17:08)
[2018-07-07] MEDS: Metoprolol Succinate 50 MG Tab.ER PO SCH (08:54)
[2018-07-07] MEDS: Cholecalciferol (Vitamin D3) 1,000 Unit Tab PO SCH (08:55)
[2018-07-07] MEDS: Warfarin 3 MG Tab PO SCH (17:08)
[2018-07-07] MEDS: Gabapentin 100 MG Cap PO SCH (20:10)
[2018-07-07] MEDS: Zolpidem 5 MG Tab PO SCH (20:10)
[2018-07-08] MEDS: Levothyroxine 100 MCG Tab PO SCH (06:07)
[2018-07-08] MEDS: Ferrous Sulfate 325 MG Tab PO SCH ×2 (08:27→17:37)
[2018-07-08] MEDS: Calcium Carbonate 500 MG Tablet PO SCH (08:32)
[2018-07-08] MEDS: Polyethylene Glycol 3350 Powder 17 GM Packet PO SCH (08:32)
[2018-07-08] MEDS: Furosemide 40 MG Tab PO SCH (08:32)
[2018-07-08] MEDS: Metoprolol Succinate 50 MG Tab.ER PO SCH (08:33)
[2018-07-08] MEDS: Cholecalciferol (Vitamin D3) 1,000 Unit Tab PO SCH (08:33)
[2018-07-08] MEDS: Multivitamins with Iron/Calcium/Folic Acid/Minerals Tab PO SCH (08:33)
[2018-07-08] MEDS: fentaNYL 25 MCG/HR Transdermal Patch TRDERM SCH (08:48)
[2018-07-08] MEDS: Acetaminophen/Codeine 300-30 MG Tab PO PRN ×2 (10:15→20:10)
--- NOTE | 2018-07-08 13:44 | PN ---
DATE SEEN: 07/08/2018 SUBJECTIVE: Lashell Ennis is an 83-year-old female, in swing bed. Fracture on 06/07/2018, left hip. Hemoglobin stable at 8.3 and 9.8. We will recheck her hemoglobin and do x-rays today of that hip. Otherwise doing well. OBJECTIVE: VITAL SIGNS: 132/75, 18 is respiration, 95% on room, 36.5, 67 pulse. GENERAL: In good spirits. NECK: Benign. Thyroid small. CHEST: Clear in all lung angulo. HEART: Occasional ectopy. Soft murmur. EXTREMITIES: Surgical wound left hip intact. ASSESSMENT: Left hip fracture, prolonged therapy. PLAN: Coumadin on board, Duragesic patch working well 25 mcg. Complementary care and well being. Home living situation under review. Discharge upcoming plan. /[id number] MUMTAZ/ISAAC
[2018-07-08] MEDS: Warfarin 4 MG Tab PO SCH (16:00)
[2018-07-08] MEDS: Gabapentin 100 MG Cap PO SCH (20:10)
[2018-07-08] MEDS: Zolpidem 5 MG Tab PO SCH (20:10)
[2018-07-09] MEDS: Levothyroxine 100 MCG Tab PO SCH (06:08)
--- NOTE | 2018-07-09 08:04 | CR ---
INDICATION: Followup hip fracture. LEFT HIP: Frontal and lateral views of the left hip were obtained post hip pinning, 07/08/18, and compared with previous hip pinning visualization of 06/17, revealing no change in position or alignment of the femoral fracture fragments fixed in place by the hip pinning device. The hip pinning device is intact, and no complicating process could be identified. IMPRESSION: Continued satisfactory appearance post left hip pinning with three images utilized. MTDD
[2018-07-09] MEDS: Furosemide 40 MG Tab PO SCH (08:37)
[2018-07-09] MEDS: Ferrous Sulfate 325 MG Tab PO SCH ×2 (08:37→18:06)
[2018-07-09] MEDS: Polyethylene Glycol 3350 Powder 17 GM Packet PO SCH (08:37)
[2018-07-09] MEDS: Multivitamins with Iron/Calcium/Folic Acid/Minerals Tab PO SCH (08:38)
[2018-07-09] MEDS: Cholecalciferol (Vitamin D3) 1,000 Unit Tab PO SCH (08:38)
[2018-07-09] MEDS: Calcium Carbonate 500 MG Tablet PO SCH (08:38)
[2018-07-09] MEDS: Metoprolol Succinate 50 MG Tab.ER PO SCH (08:41)
[2018-07-09] MEDS: Acetaminophen/Codeine 300-30 MG Tab PO PRN ×2 (08:43→20:40)
--- NOTE | 2018-07-09 13:13 | PN ---
DATE SEEN: 07/09/2018 SUBJECTIVE: Lashell Ennis is a delightful 83-year-old female, seen today for review. She has had lengthy postoperative care in relationship to left hip fracture. Plan is to discharge later this week. Ambulating better. Wound is healing well. No complicating issues. LABORATORY STUDIES: INR 2.25. Hemoglobin 9.8 and 9.4. Iron on board 325 b.i.d. Doing well in terms of pain. OBJECTIVE: VITAL SIGNS: 36.5, 74, 155/75, 14, and 97. GENERAL: Always in good spirits. No complaints. CHEST: Clear. HEART: Regular. ABDOMEN: Benign. Wound healing well. IMPRESSION: Postoperative care, rehab, left hip fracture. PLAN: All looks well. Duragesic patch certainly comfortable to go home with for a short time. Follow up as appropriate. /[id number] [facility]/ISAAC
[2018-07-09] MEDS: Warfarin 3 MG Tab PO SCH (15:28)
[2018-07-09] MEDS: Gabapentin 100 MG Cap PO SCH (20:39)
[2018-07-09] MEDS: Zolpidem 5 MG Tab PO SCH (20:39)
[2018-07-10] MEDS: Levothyroxine 100 MCG Tab PO SCH (06:33)
[2018-07-10] MEDS: Ferrous Sulfate 325 MG Tab PO SCH ×2 (08:19→17:29)
[2018-07-10] MEDS: Multivitamins with Iron/Calcium/Folic Acid/Minerals Tab PO SCH (08:24)
[2018-07-10] MEDS: Calcium Carbonate 500 MG Tablet PO SCH (08:24)
[2018-07-10] MEDS: Furosemide 40 MG Tab PO SCH (08:24)
[2018-07-10] MEDS: Cholecalciferol (Vitamin D3) 1,000 Unit Tab PO SCH (08:24)
[2018-07-10] MEDS: Metoprolol Succinate 50 MG Tab.ER PO SCH (08:24)
[2018-07-10] MEDS: Polyethylene Glycol 3350 Powder 17 GM Packet PO SCH (08:24)
[2018-07-10] MEDS: Acetaminophen/Codeine 300-30 MG Tab PO PRN ×3 (08:31→21:07)
--- NOTE | 2018-07-10 13:42 | PN ---
DATE SEEN: 07/10/2018 SUBJECTIVE: Lashell Ennis is an 83-year-old, female, in swing bed. She had a left hip fracture. Convalescence has been difficult. The pain has been a primary issue, doing well with Duragesic. Tylenol with codeine for breakthrough pain. No recent radiographs. Hemoglobin stable at 9.8 and 9.4, iron in place. Doing well. Plans for discharge home with care services. OBJECTIVE: VITAL SIGNS: 165/79, 72 is the pulse, 36.5 degrees Fahrenheit, 14 is the respiration, 97. GENERAL: In good spirits. NECK: Benign. CHEST: Clear all lung angulo. HEART: No ectopy or murmur. ABDOMEN: Benign. EXTREMITIES: Surgical right hip wound healing well. ASSESSMENT: Right hip fracture with routine healing. PLAN: All looks well. We will proceed with planned discharge to home on Sunday. Home health and services to be provided. /[id number] MUMTAZ/ISAAC
[2018-07-10] MEDS: Warfarin 4 MG Tab PO SCH (16:03)
[2018-07-10] MEDS: Zolpidem 5 MG Tab PO SCH (21:07)
[2018-07-10] MEDS: Gabapentin 100 MG Cap PO SCH (21:07)
[2018-07-11] MEDS: Levothyroxine 100 MCG Tab PO SCH (05:45)
[2018-07-11] MEDS: Cholecalciferol (Vitamin D3) 1,000 Unit Tab PO SCH (08:24)
[2018-07-11] MEDS: Acetaminophen/Codeine 300-30 MG Tab PO PRN ×3 (08:24→20:47)
[2018-07-11] MEDS: Metoprolol Succinate 50 MG Tab.ER PO SCH (08:25)
[2018-07-11] MEDS: fentaNYL 25 MCG/HR Transdermal Patch TRDERM SCH (08:25)
[2018-07-11] MEDS: Calcium Carbonate 500 MG Tablet PO SCH (08:25)
[2018-07-11] MEDS: Furosemide 40 MG Tab PO SCH (08:25)
[2018-07-11] MEDS: Polyethylene Glycol 3350 Powder 17 GM Packet PO SCH (08:25)
[2018-07-11] MEDS: Ferrous Sulfate 325 MG Tab PO SCH ×2 (08:25→17:01)
[2018-07-11] MEDS: Multivitamins with Iron/Calcium/Folic Acid/Minerals Tab PO SCH (08:25)
[2018-07-11] MEDS: Warfarin 3 MG Tab PO SCH (15:30)
[2018-07-11] MEDS: Zolpidem 5 MG Tab PO SCH (20:46)
[2018-07-11] MEDS: Gabapentin 100 MG Cap PO SCH (20:47)
[2018-07-12] MEDS: Levothyroxine 100 MCG Tab PO SCH (07:24)
[2018-07-12] MEDS: Ferrous Sulfate 325 MG Tab PO SCH (08:40)
[2018-07-12] MEDS: Furosemide 40 MG Tab PO SCH (08:41)
[2018-07-12] MEDS: Cholecalciferol (Vitamin D3) 1,000 Unit Tab PO SCH (08:41)
[2018-07-12] MEDS: Polyethylene Glycol 3350 Powder 17 GM Packet PO SCH (08:41)
[2018-07-12] MEDS: Multivitamins with Iron/Calcium/Folic Acid/Minerals Tab PO SCH (08:41)
[2018-07-12] MEDS: Calcium Carbonate 500 MG Tablet PO SCH (08:41)
[2018-07-12] MEDS: Acetaminophen/Codeine 300-30 MG Tab PO PRN (08:42)
[2018-07-12] MEDS: Metoprolol Succinate 50 MG Tab.ER PO SCH (08:42)
--- NOTE | 2018-07-12 10:56 | PCM.PN ---
- General Info Date of Service: 07/12/18 Admission Dx/Problem (Free Text): Patient is without concerns. Patient states her hip pain is controlled with the Duragesic patch and the Tylenol No. 3. - Patient Data Vitals - Most Recent: Last Vital Signs Temp 97.2 F 07/12/18 07:44 Pulse 52 L 07/12/18 08:42 Resp 18 07/12/18 07:44 BP 132/59 L 07/12/18 08:42 Pulse Ox 98 07/12/18 07:44 Weight - Most Recent: 171 lb 6.4 oz Lab Results Last 24 Hours: Laboratory Results - last 24 hr 07/11/18 07/12/18 Range/Units 12:40 06:10 PT 27.3 H (8.7-11.1) INR 2.84 H (0.89-1.13) Urine Color Yellow (YELLOW) Urine Appearance Clear (CLEAR) Urine pH 5.0 (5.0-6.5) Ur Specific [place] 1.020 (1.010-1.025) Urine Protein Negative (NEGATIVE) mg/dL Urine Glucose (UA) Normal (NORMAL) mg/dL Urine Ketones Negative (NEGATIVE) mg/dL Urine Occult Blood Negative (NEGATIVE) Urine Nitrite Negative (NEGATIVE) Urine Bilirubin Negative (NEGATIVE) Urine Urobilinogen Normal (NEGATIVE) mg/dL Ur Leukocyte Esterase Negative (NEGATIVE) Urine RBC 0-5 (0-5) Urine WBC 0-5 (0-5) Ur Squamous Epith Cells Few H (NS,R,O) Urine Bacteria Few H (NS) Med Orders - Current: Current Medications Acetaminophen/Codeine Phosphate (Tylenol With Codeine No.3 300mg/30mg) 2 tab PO Q6H PRN PRN Reason: Pain Last Admin: 07/12/18 08:42 Dose: 2 tab Calcium Carbonate/Glycine (Oyster Shell Calcium) 1,000 mg PO DAILY [facility] Last Admin: 07/12/18 08:41 Dose: 1,000 mg Cholecalciferol (Vitamin D3) 1,000 units PO DAILY [facility] Last Admin: 07/12/18 08:41 Dose: 1,000 units Desipramine HCl (Desipramine) 100 mg PO BEDTIME [facility] Last Admin: 07/11/18 20:46 Dose: 100 mg Enalapril Maleate (Vasotec) 2.5 mg PO DAILY [facility] Last Admin: 07/12/18 08:42 Dose: 2.5 mg Fentanyl (Duragesic) 25 mcg TRDERM Q72H [facility] Last Admin: 07/11/18 08:25 Dose: 25 mcg Ferrous Sulfate (Ferrous Sulfate) 325 mg PO BIDMEALS [facility] Last Admin: 07/12/18 08:40 Dose: 325 mg Furosemide (Lasix) 40 mg PO DAILY [facility] Last Admin: 07/12/18 08:41 Dose: 40 mg Gabapentin (Neurontin) 100 mg PO BEDTIME [facility] Last Admin: 07/11/18 20:47 Dose: 100 mg Hydroxyzine HCl (Atarax) 25 mg PO Q4H PRN PRN Reason: ADJUNCT PAIN WITH OXYCODONE Last Admin: 06/30/18 12:44 Dose: 25 mg Levothyroxine Sodium (Synthroid) 100 mcg PO 0600 [facility] Last Admin: 07/12/18 07:24 Dose: 100 mcg Metoprolol Succinate (Toprol Xl) 50 mg PO DAILY [facility] Last Admin: 07/12/18 08:42 Dose: 50 mg Multivitamins/Minerals (Thera M Plus) 1 tab PO DAILY [facility] Last Admin: 07/12/18 08:41 Dose: 1 tab Polyethylene Glycol (Miralax) 17 gm PO DAILY [facility] Last Admin: 07/12/18 08:41 Dose: 17 gm Senna/Docusate Sodium (Senna Plus) 1 tab PO BID [facility] Last Admin: 07/12/18 08:41 Dose: 1 tab Warfarin Sodium (Coumadin Sliding Scale) 1 each PO ASDIRECTED [facility] Warfarin Sodium (Coumadin) 6 mg PO SuTuThSa@1600 [facility] Last Admin: 07/11/18 15:30 Dose: 6 mg Warfarin Sodium (Coumadin) 4 mg PO MoWeFr@1600 [facility] Last Admin: 07/10/18 16:03 Dose: 4 mg Zolpidem Tartrate (Ambien) 5 mg PO BEDTIME [facility] Last Admin: 07/11/18 20:46 Dose: 5 mg Discontinued Medications Acetaminophen (Tylenol Extra Strength) 1,000 mg PO Q8H [facility] Last Admin: 06/16/18 05:55 Dose: 1,000 mg Aspirin (Halfprin) 81 mg PO DAILY [facility] Last Admin: 06/22/18 08:20 Dose: 81 mg Calcium Carbonate (Calcium Carbonate/Vitamin D 1250 Mg-200 Unit) 2 tab PO DAILY [facility] Last Admin: 06/19/18 09:07 Dose: 2 tab Enoxaparin Sodium (Lovenox) 40 mg SUBCUT DAILY [facility] Last Admin: 06/22/18 08:21 Dose: 40 mg Fentanyl (Duragesic) 12 mcg TRDERM Q72H [facility] Last Admin: 06/30/18 09:38 Dose: 12 mcg Oxycodone HCl (Oxycodone) 2.5 mg PO Q4H PRN PRN Reason: MODERATE PAIN Last Admin: 06/15/18 11:47 Dose: 2.5 mg Oxycodone HCl (Oxycodone) 5 mg PO Q4H PRN PRN Reason: SEVERE PAIN Last Admin: 06/16/18 07:26 Dose: 5 mg Oxycodone/Acetaminophen (Percocet 325-5 Mg) 1 tab PO Q6H [facility] Last Admin: 06/17/18 11:18 Dose: 1 tab Oxycodone/Acetaminophen (Percocet 325-5 Mg) 1 tab PO Q4H [facility] Last Admin: 06/21/18 08:15 Dose: 1 tab Oxycodone/Acetaminophen (Percocet 325-5 Mg) 1 tab PO Q4H PRN PRN Reason: BREAKTHROUGH PAIN Last Admin: 06/26/18 05:59 Dose: 1 tab Warfarin Sodium (Coumadin) 4 mg PO 1600 [facility] Last Admin: 06/16/18 16:28 Dose: 4 mg Warfarin Sodium (Coumadin) 6 mg PO ONETIME ONE Stop: 06/17/18 16:01 Last Admin: 06/17/18 17:16 Dose: 6 mg Warfarin Sodium (Coumadin) 6 mg PO ONETIME ONE Stop: 06/18/18 16:01 Last Admin: 06/18/18 16:08 Dose: 6 mg Warfarin Sodium (Coumadin) 4 mg PO 1600 [facility] Last Admin: 06/20/18 16:07 Dose: 4 mg Warfarin Sodium (Coumadin) 6 mg PO DAILY@1600 [facility] Stop: 06/22/18 16:01 Last Admin: 06/22/18 15:57 Dose: 6 mg Warfarin Sodium (Coumadin) 4 mg PO ONETIME ONE Stop: 06/23/18 16:01 Last Admin: 06/23/18 15:56 Dose: 4 mg Warfarin Sodium (Coumadin) 6 mg PO ONETIME ONE Stop: 06/24/18 16:01 Last Admin: 06/24/18 15:31 Dose: 6 mg Warfarin Sodium (Coumadin) 6 mg PO ONETIME ONE Stop: 06/25/18 16:01 Last Admin: 06/25/18 16:23 Dose: 6 mg Warfarin Sodium (Coumadin) 4 mg PO ONETIME ONE Stop: 06/26/18 16:01 Last Admin: 06/26/18 15:20 Dose: 4 mg - Exam General: Alert, Oriented, Cooperative Skin: Other (Left hip incision is healed nicely.) - Problem List & Annotations (1) S/P total hip arthroplasty SNOMED Code(s): 086049588062, 262048652065 Code(s): Z96.649 - PRESENCE OF UNSPECIFIED ARTIFICIAL HIP JOINT Status: Acute Current Visit: No - Problem List Review Problem List Initiated/Reviewed/Updated: Yes - My Orders Last 24 Hours: My Active Orders 07/15/18 06:00 INR,PT,PROTHROMBIN TIME [COAG] MOFR@0600 - Plan Plan:: Discharged home on home health, PT/OT. Continue Duragesic patch and Tylenol No. 3 when necessary
--- NOTE | 2018-07-12 10:58 | PCM.DCSUM1 ---
Discharge Summary - Hospital Course Free Text/Narrative:: Hospital course-patient was admitted to swing bed for PT/OT and rehab. Patient to consider a lot of pain and left hip so was re-x-rayed and was in good position. We had started increased her pain medication to Percocet and then finally she was on Duragesic with some Tylenol No. 3 and as needed. She got better and was able to do PT/OT to the point where she can be transferred home on all mouth. She says her pain is controlled now. She's done quite well. Brief History: 82 yo female with a recent fracture of the hip,with an intramedullary nail placed. She is being admitted to Swing Bed for rehab.has CAD ,CHF,Afib,HTN,MDD all well controlled.She is a [employer]. Diagnosis: Stroke: No - Discharge Data Discharge Date: 07/12/18 Discharge Disposition: Home, W Home Health Agency 06 Condition: Good - Discharge Diagnosis/Problem(s) (1) S/P total hip arthroplasty SNOMED Code(s): 521974032737, 643118612049 ICD Code: Z96.649 - PRESENCE OF UNSPECIFIED ARTIFICIAL HIP JOINT Status: Acute Current Visit: No - Patient Summary/Data Consults: Consultations 06/13/18 13:20 OT Evaluation and Treatment [CONS] Routine Please Evaluate and Treat. OT Reason for Consult: ADL's This query below is only for informational purposes and is not editable. PT Evaluation and Treatment [CONS] Routine Please Evaluate and Treat. PT Reason for Consult: Ambulation This query below is only for informational purposes and is not editable. - Patient Instructions Diet: Regular Diet as Tolerated Activity: As Tolerated Driving: Do Not Drive Showering/Bathing: May Shower Notify Provider of: Increased Pain Other/Special Instructions: 1. Home health/PT/OT for rehabilitation, home safety , med management. 2. Recheck with Dr. Ricks and 7-10 days. - Discharge Plan Prescriptions/Med Rec: Acetaminophen/Codeine [Tylenol with Codeine No.3 300MG/30MG] 2 tab PO Q6H PRN # 40 tablet PRN Reason: Pain Enalapril [Vasotec] 2.5 mg PO DAILY #30 tablet fentaNYL [Duragesic] 25 mcg TRDERM Q72H 30 Days #10 patch Ferrous Sulfate 325 mg PO BIDMEALS #60 tablet Furosemide [Lasix] 40 mg PO DAILY #30 tablet Gabapentin [Neurontin] 100 mg PO BEDTIME 30 Days #30 capsule Home Medications: Home Meds Aspirin [Halfprin] 81 mg PO DAILY 11/22/17 [History] Calcium Carb/D3/Magnesium/Zinc [Brvxsyx-Ihy-Bcvm-Vit D] 3 tab PO DAILY 11/22/17 [History] Cholecalciferol (Vitamin D3) [Vitamin D3] 1,000 units PO DAILY 11/22/17 [History ] Desipramine HCl 100 mg PO BEDTIME 11/22/17 [History] Dextroamphetamine Sulfate [Dexedrine] 10 mg PO 08,12 11/22/17 [History] Metoprolol Succinate [Toprol Xl] 50 mg PO DAILY 11/22/17 [History] Multivitamin [Multivitamins] 1 cap PO DAILY 11/22/17 [History] Polyethylene Glycol 3350 [MiraLAX] 17 gm PO DAILY 11/22/17 [History] Sennosides/Docusate Sodium [Senna-S] 1 tab PO BID 11/22/17 [History] Acetaminophen [Tylenol Extra Strength] 1,000 mg PO Q8H 06/13/18 [History] Levothyroxine [Synthroid] 100 mcg PO 0600 06/13/18 [History] Zolpidem Tartrate [Ambien] 5 mg PO BEDTIME 06/13/18 [History] Acetaminophen/Codeine [Tylenol with Codeine No.3 300MG/30MG] 2 tab PO Q6H PRN # 40 tablet 07/11/18 [Rx] Enalapril [Vasotec] 2.5 mg PO DAILY #30 tablet 07/11/18 [Rx] Ferrous Sulfate 325 mg PO BIDMEALS #60 tablet 07/11/18 [Rx] Furosemide [Lasix] 40 mg PO DAILY #30 tablet 07/11/18 [Rx] Gabapentin [Neurontin] 100 mg PO BEDTIME 30 Days #30 capsule 07/11/18 [Rx] Warfarin [Coumadin] 4 mg PO MoWeFr@1600 tablet 07/11/18 [Rx] Warfarin [Coumadin] 6 mg PO SuTuThSa@1600 tablet 07/11/18 [Rx] fentaNYL [Duragesic] 25 mcg TRDERM Q72H 30 Days #10 patch 07/11/18 [Rx] Patient Handouts: Hip Pain, Fall Prevention in Hospitals, Adult, Venous Thromboembolism Prevention Forms: Take Home DC Nutrition Plan - Discharge Summary/Plan Comment DC Time >30 min.: No - Patient Data Vitals - Most Recent: Last Vital Signs Temp 97.2 F 07/12/18 07:44 Pulse 52 L 07/12/18 08:42 Resp 18 07/12/18 07:44 BP 132/59 L 07/12/18 08:42 Pulse Ox 98 07/12/18 07:44 Weight - Most Recent: 171 lb 6.4 oz Lab Results - Last 24 hrs: Laboratory Results - last 24 hr 07/11/18 07/12/18 Range/Units 12:40 06:10 PT 27.3 H (8.7-11.1) INR 2.84 H (0.89-1.13) Urine Color Yellow (YELLOW) Urine Appearance Clear (CLEAR) Urine pH 5.0 (5.0-6.5) Ur Specific [place] 1.020 (1.010-1.025) Urine Protein Negative (NEGATIVE) mg/dL Urine Glucose (UA) Normal (NORMAL) mg/dL Urine Ketones Negative (NEGATIVE) mg/dL Urine Occult Blood Negative (NEGATIVE) Urine Nitrite Negative (NEGATIVE) Urine Bilirubin Negative (NEGATIVE) Urine Urobilinogen Normal (NEGATIVE) mg/dL Ur Leukocyte Esterase Negative (NEGATIVE) Urine RBC 0-5 (0-5) Urine WBC 0-5 (0-5) Ur Squamous Epith Cells Few H (NS,R,O) Urine Bacteria Few H (NS) Med Orders - Current: Current Medications Acetaminophen/Codeine Phosphate (Tylenol With Codeine No.3 300mg/30mg) 2 tab PO Q6H PRN PRN Reason: Pain Last Admin: 07/12/18 08:42 Dose: 2 tab Calcium Carbonate/Glycine (Oyster Shell Calcium) 1,000 mg PO DAILY [facility] Last Admin: 07/12/18 08:41 Dose: 1,000 mg Cholecalciferol (Vitamin D3) 1,000 units PO DAILY [facility] Last Admin: 07/12/18 08:41 Dose: 1,000 units Desipramine HCl (Desipramine) 100 mg PO BEDTIME [facility] Last Admin: 07/11/18 20:46 Dose: 100 mg Enalapril Maleate (Vasotec) 2.5 mg PO DAILY [facility] Last Admin: 07/12/18 08:42 Dose: 2.5 mg Fentanyl (Duragesic) 25 mcg TRDERM Q72H [facility] Last Admin: 07/11/18 08:25 Dose: 25 mcg Ferrous Sulfate (Ferrous Sulfate) 325 mg PO BIDMEALS [facility] Last Admin: 07/12/18 08:40 Dose: 325 mg Furosemide (Lasix) 40 mg PO DAILY [facility] Last Admin: 07/12/18 08:41 Dose: 40 mg Gabapentin (Neurontin) 100 mg PO BEDTIME [facility] Last Admin: 07/11/18 20:47 Dose: 100 mg Hydroxyzine HCl (Atarax) 25 mg PO Q4H PRN PRN Reason: ADJUNCT PAIN WITH OXYCODONE Last Admin: 06/30/18 12:44 Dose: 25 mg Levothyroxine Sodium (Synthroid) 100 mcg PO 0600 [facility] Last Admin: 07/12/18 07:24 Dose: 100 mcg Metoprolol Succinate (Toprol Xl) 50 mg PO DAILY [facility] Last Admin: 07/12/18 08:42 Dose: 50 mg Multivitamins/Minerals (Thera M Plus) 1 tab PO DAILY [facility] Last Admin: 07/12/18 08:41 Dose: 1 tab Polyethylene Glycol (Miralax) 17 gm PO DAILY [facility] Last Admin: 07/12/18 08:41 Dose: 17 gm Senna/Docusate Sodium (Senna Plus) 1 tab PO BID [facility] Last Admin: 07/12/18 08:41 Dose: 1 tab Warfarin Sodium (Coumadin Sliding Scale) 1 each PO ASDIRECTED [facility] Warfarin Sodium (Coumadin) 6 mg PO SuTuThSa@1600 [facility] Last Admin: 07/11/18 15:30 Dose: 6 mg Warfarin Sodium (Coumadin) 4 mg PO MoWeFr@1600 [facility] Last Admin: 07/10/18 16:03 Dose: 4 mg Zolpidem Tartrate (Ambien) 5 mg PO BEDTIME [facility] Last Admin: 07/11/18 20:46 Dose: 5 mg Discontinued Medications Acetaminophen (Tylenol Extra Strength) 1,000 mg PO Q8H [facility] Last Admin: 06/16/18 05:55 Dose: 1,000 mg Aspirin (Halfprin) 81 mg PO DAILY [facility] Last Admin: 06/22/18 08:20 Dose: 81 mg Calcium Carbonate (Calcium Carbonate/Vitamin D 1250 Mg-200 Unit) 2 tab PO DAILY [facility] Last Admin: 06/19/18 09:07 Dose: 2 tab Enoxaparin Sodium (Lovenox) 40 mg SUBCUT DAILY [facility] Last Admin: 06/22/18 08:21 Dose: 40 mg Fentanyl (Duragesic) 12 mcg TRDERM Q72H [facility] Last Admin: 06/30/18 09:38 Dose: 12 mcg Oxycodone HCl (Oxycodone) 2.5 mg PO Q4H PRN PRN Reason: MODERATE PAIN Last Admin: 06/15/18 11:47 Dose: 2.5 mg Oxycodone HCl (Oxycodone) 5 mg PO Q4H PRN PRN Reason: SEVERE PAIN Last Admin: 06/16/18 07:26 Dose: 5 mg Oxycodone/Acetaminophen (Percocet 325-5 Mg) 1 tab PO Q6H [facility] Last Admin: 06/17/18 11:18 Dose: 1 tab Oxycodone/Acetaminophen (Percocet 325-5 Mg) 1 tab PO Q4H [facility] Last Admin: 06/21/18 08:15 Dose: 1 tab Oxycodone/Acetaminophen (Percocet 325-5 Mg) 1 tab PO Q4H PRN PRN Reason: BREAKTHROUGH PAIN Last Admin: 06/26/18 05:59 Dose: 1 tab Warfarin Sodium (Coumadin) 4 mg PO 1600 [facility] Last Admin: 06/16/18 16:28 Dose: 4 mg Warfarin Sodium (Coumadin) 6 mg PO ONETIME ONE Stop: 06/17/18 16:01 Last Admin: 06/17/18 17:16 Dose: 6 mg Warfarin Sodium (Coumadin) 6 mg PO ONETIME ONE Stop: 06/18/18 16:01 Last Admin: 06/18/18 16:08 Dose: 6 mg Warfarin Sodium (Coumadin) 4 mg PO 1600 [facility] Last Admin: 06/20/18 16:07 Dose: 4 mg Warfarin Sodium (Coumadin) 6 mg PO DAILY@1600 [facility] Stop: 06/22/18 16:01 Last Admin: 06/22/18 15:57 Dose: 6 mg Warfarin Sodium (Coumadin) 4 mg PO ONETIME ONE Stop: 06/23/18 16:01 Last Admin: 06/23/18 15:56 Dose: 4 mg Warfarin Sodium (Coumadin) 6 mg PO ONETIME ONE Stop: 06/24/18 16:01 Last Admin: 06/24/18 15:31 Dose: 6 mg Warfarin Sodium (Coumadin) 6 mg PO ONETIME ONE Stop: 06/25/18 16:01 Last Admin: 06/25/18 16:23 Dose: 6 mg Warfarin Sodium (Coumadin) 4 mg PO ONETIME ONE Stop: 06/26/18 16:01 Last Admin: 06/26/18 15:20 Dose: 4 mg
--- NOTE | 2018-07-12 10:59 | DISCH ---
DISCHARGE DATE: 07/11/2018 HISTORY OF PRESENT ILLNESS: Lashell Ennis is an 83-year-old female, admitted to swing bed. She had a recent hip fracture of the left hip. Followup film during her hospital stay revealed satisfactory appearance on 3 images. She had a lengthy recovery time. Pain, ambulation skills were difficult to begin with advance as appropriate. PT/OT was involved in with good outcome. LABORATORY STUDIES: INR was therapeutic throughout hospital stay. Hemoglobin and hematocrit at 9.8 and 9.4 on iron therapy. At the time of discharge, was up and ambulating with walker. Comfortable pain medications appear to be appropriate. We will proceed with planned discharge and intervention as appropriate. DISCHARGE MEDICATIONS: Please see med recon list. SURGICAL PROCEDURES: Outside hospital, left hip repair. /[id number] MUMTAZ/ISAAC
== END 2018-07-12 14:20 | disposition home health service (06) | DRG 561 ==
LOC: FB.MS 13:06
PROVIDERS: ADMIT Family Medicine; ATTEND Family Medicine
DX: S72.92XD Unspecified fracture of left femur, subsequent encounter for closed fracture with routine healing (principal); Z98.890 Other specified postprocedural states; I11.0 Hypertensive heart disease with heart failure; I50.9 Heart failure, unspecified; I48.2 Chronic atrial fibrillation; D64.9 Anemia, unspecified; Z79.01 Long term (current) use of anticoagulants; I25.10 Atherosclerotic heart disease of native coronary artery without angina pectoris; E03.9 Hypothyroidism, unspecified; F32.9 Major depressive disorder, single episode, unspecified; H91.90 Unspecified hearing loss, unspecified ear; H54.7 Unspecified visual loss; Z95.1 Presence of aortocoronary bypass graft; Z95.5 Presence of coronary angioplasty implant and graft; Z87.01 Personal history of pneumonia (recurrent); K59.09 Other constipation; K21.9 Gastro-esophageal reflux disease without esophagitis; Z87.440 Personal history of urinary (tract) infections; M19.90 Unspecified osteoarthritis, unspecified site; Z86.73 Personal history of transient ischemic attack (TIA), and cerebral infarction without residual deficits; Z86.718 Personal history of other venous thrombosis and embolism; Z90.710 Acquired absence of both cervix and uterus; Z96.649 Presence of unspecified artificial hip joint; Z96.659 Presence of unspecified artificial knee joint; Z87.891 Personal history of nicotine dependence; M81.0 Age-related osteoporosis without current pathological fracture; Z79.899 Other long term (current) drug therapy; Z79.82 Long term (current) use of aspirin; Z88.1 Allergy status to other antibiotic agents; G62.9 Polyneuropathy, unspecified
CPT/HCPCS: 36415; 51798; 73502-LT; 73521; 80053; 81001; 82272; 82607; 83735; 85014; 85018; 85025; 85045; 85610; 86140; 97110-GO; 97110-GP; 97116-GP; 97161-GP; 97165-GO; 97530-GO; 97530-GP; 97535-GO; A9270-GY; J1650